=== PATIENT | male | born 1990 | race Caucasian/White ===

== ENCOUNTER 2017-03-03 23:09 | Emergency (ER) | payer MEDICAID ==
[~2017-03-03] VITALS: Ht 182.9 cm; Wt 86.5 kg
[2017-03-03] MEDS ORDERED: HYDROmorphone 1 MG/ML, 1ML ONE (23:42)
[2017-03-03] MEDS ORDERED: ACETAMINOPHEN 500 MG TABLET ONE (23:42)
[2017-03-03] MEDS ORDERED: KETOROLAC 30 MG/1 ML ONE (23:43)
[2017-03-04] MEDS ORDERED: KETOROLAC 30 MG/1 ML IM ONE
[2017-03-04] MEDS ORDERED: LIDOCAINE 1%, 10ML INFIL ONE
[2017-03-04] MEDS ORDERED: ACETAMINOPHEN 500 MG TABLET PO ONE
[2017-03-04] MEDS ORDERED: HYDROmorphone 1 MG/ML, 1ML IM ONE
[2017-03-04] MEDS ORDERED: LIDOCAINE 1%, 20ML ONE (00:02)
[2017-03-04] MEDS ORDERED: CLINDAMYCIN 150 MG/ML, 6ML IM ONE (02:00)
[2017-03-04 02:04] VITALS: BP 120/60
== END 2017-03-04 02:07 | disposition home or self-care (01) ==
LOC: ED 23:59
DX: N49.2 Inflammatory disorders of scrotum (principal); L04.1 Acute lymphadenitis of trunk
CPT/HCPCS: 76870; 93975; 96372; 99284; J1170; J1885; J3490